=== PATIENT | male | born 1980 | race Caucasian/White ===

== ENCOUNTER 2017-02-07 13:17 | Emergency (ER) | payer OTHER ==
[~2017-02-07] VITALS: Ht 177.8 cm; Wt 79.4 kg
[~2017-02-07 13:17] MED LIST: CLONAZEPAM 1 MG1 M1 PO; DOXYCYCLINE 10100 MG PO; PREVACID30 M2 PO; TRAMADOL 50 MG50 MG PO; VYVANSE40 MG PO
[2017-02-07] MEDS ORDERED: NORCO 5-325 TA1 EACH PO (14:51)
[2017-02-07] MEDS ORDERED: AUGMENTIN 875875 MG PO (14:51)
[2017-02-07 14:59] VITALS: BP 129/95
== END 2017-02-07 14:59 | disposition home or self-care (01) ==
LOC: ER 13:17
DX: S02.2XXA Fracture of nasal bones, initial encounter for closed fracture (principal); S09.90XA Unspecified injury of head, initial encounter; F17.210 Nicotine dependence, cigarettes, uncomplicated; F10.99 Alcohol use, unspecified with unspecified alcohol-induced disorder; Z90.49 Acquired absence of other specified parts of digestive tract; Z98.890 Other specified postprocedural states; Z88.8 Allergy status to other drugs, medicaments and biological substances; Y08.89XA Assault by other specified means, initial encounter; Y93.89 Activity, other specified; Y92.89 Other specified places as the place of occurrence of the external cause; Y99.8 Other external cause status